=== PATIENT | male | born 2000 | race Two or more races ===

== ENCOUNTER 2021-12-11 18:12 | Emergency (ER) | payer OTHER ==
[~2021-12-11] VITALS: Ht 180.3 cm; Wt 68.0 kg
[2021-12-11] MEDS ORDERED: ITCH RELIEF15 G1 TOP (22:01)
== END 2021-12-11 22:47 | disposition home or self-care (01) ==
LOC: ER 18:12
DX: L30.9 Dermatitis, unspecified (principal)

== ENCOUNTER 2025-04-24 22:53 | Emergency (ER) | payer OTHER ==
[~2025-04-24] VITALS: Ht 152.4 cm; Wt 69.9 kg
[~2025-04-24 22:53] MED LIST: ITCH RELIEF15 G1 TOP
[2025-04-25] MEDS ORDERED: KETOROLAC TROMETHAMINE 30 MG VIAL IV STA (01:20)
[2025-04-25] MEDS ORDERED: KETO10TA2 PO (03:11)
[2025-04-25 03:14] VITALS: BP 130/60; O2SAT 100
== END 2025-04-25 03:16 | disposition home or self-care (01) ==
LOC: ER 23:09
DX: M62.830 Muscle spasm of back (principal); R07.89 Other chest pain